=== PATIENT | male | born 1970 | race African-American/Black ===

== ENCOUNTER 2022-02-17 16:51 | Emergency (ER) | payer BC ==
--- OUTSIDE RECORDS SUMMARY | 2022-02-17 16:55 | XMS REPORT | Continuity of Care Document ---
:1970 Author Organization [facility] t Address [address] [place] [address] Care Team Providers Name Role Phone Asked, No Pcp Primary Care Physician Unavailable Sp MARI, Troy Finch Attending Clinician Payers Payer Name Policy Type Policy Number Effective Date Expiration Date S ource Problems Condition Condition Condition Status Onset Resolution Last Treating Co mments Source Name Details Category Date Date Treatment Clinician Date Umbilical Umbilical Disease Active 2017-06 [facility] hernia, hernia, [address] incarcerat 00:00: [facility] ed ed 00 l Allergies, Adverse Reactions, Alerts Allergy Allergy Status Severity Reaction(s) Onset Inactive Treating Comm ents Source Name Type Date Date Clinician Iodine Propensi Active Shortness Of 2017-06 Sweating, Method[facility] ty to Breath 2-[address] adverse 00:00: Hospita reaction 00 l s to drug Other Propensi Active 2017-06 Contrast Method i ty to 2-[address] adverse 00:00: Hospita reaction 00 l s Social History Social Habit Start Date Stop Date Quantity Comments Source History [facility] History [facility] Drinks Alcohol intake 2018-05-11 2018-05-11 Current [facility] 00:00:00 00:00:00 non-drinker of Hospital alcohol (finding) Tobacco use and 2018-05-07 2018-05-07 Smokeless tobacco [facility] exposure 00:00:00 00:00:00 non-user Hospital History SDOH 2018-05-07 2018-05-07 1 [facility] Frequency 00:00:00 00:00:00 Hospita l Sex Assigned At [birth year] [facility] 00:00:00 00:[facility]00 Hospital Smoking Status Start Date Stop Date Source Never smoked tobacco [facility] Medications Ordered Filled Start Stop Current Ordering Indication Dosage Frequency Signature Comments Components Source Medication Medication Date Date Medication? Clinician (SIG) Name Name dicyclomine 20mg Q.5D Take 1 Met hodi (BENTYL) 20 6-05 06-16 tablet (20 s t mg tablet 00:00: 04:59 mg total) Ho spita 00 :00 by mouth 2 l (two) times a day for 10 days. hydroCHLORO 2017-06 Yes 50mg QD Take 50 mg [facility] thiazide 2-[address] (HYDRODIURI 15:11: daily. Hosp stephanie L) 50 MG 42 l tablet metFORMIN 2017-06 Yes 1000mg Q.5D Take 1,000 [facility] (GLUCOPHAGE 2-[address] ) 1,000 mg 15:11: mouth 2 Hosp stephanie tablet 42 (two) l times a day with meals. aspirin 2017-06 Yes 81mg QD Take 81 mg Meth iker (ECOTRIN) 2-[address] 81 MG 15:11: daily. Hospita enteric 42 l coated tablet Vital Signs Vital Name Observation Time Observation Value Comments Source Systolic blood 2021-11-03 15:00:00 108 mm[Hg] [facility] pressure Diastolic blood 2021-11-03 15:00:00 59 mm[Hg] [facility] pressure Heart rate 2021-11-03 15:00:00 57 /min [facility] Body temperature 2021-11-03 15:00:00 36.17 Tiffanie [facility] Respiratory rate 2021-11-03 15:00:00 19 /min [facility] Oxygen saturation in 2021-11-03 15:00:00 95 /min [facility] Arterial blood by Pulse oximetry Body height 2021-11-03 13:10:00 182.9 cm [facility] Body weight 2021-11-03 13:10:00 140.615 kg [facility] BMI 2021-11-03 13:10:00 42.04 kg/m2 [facility] Procedures Procedure Date / Time Performing Clinician Source Performed ED REFERRAL TO [facility] 2021-11-03 15:21:34 Troy Snowden [facility] [employer] URINE CULTURE 2021-11-03 14:32[facility]00 [facility] AND 2021-11-03 14:32:00 Troy Snowden [facility] MICROSCOPY, WITH REFLEX TO CULTURE COMPREHENSIVE METABOLIC 2021-11-03 13:49:00 Troy Snowden [facility] PANEL LIPASE LEVEL 2021-11-03 13:49:00 [facility] ESTIMATED GFR 2021-11-03 13:49:00 [facility] ABDOMEN PELVIS WO 2021-11-03 13:39:[address] [facility] CONTRAST HC COMPLETE BLD COUNT 2021-11-03 13:22:00 Troy Snowden [facility] W/AUTO DIFF Plan of Care Planned Activity Planned Date Details Comments Source Future Scheduled 2022-02-17 HEPATITIS B VACCINES Met [facility] Test 16:55:00 (1 of 3 - 3-dose series) [code = HEPATITIS B VACCINES (1 of 3 - 3-dose series)] Future Scheduled 2022-02-17 COVID-19 VACCINE (#1) [facility] Test 16:55:00 [code = COVID-19 VACCINE (#1)] Future Scheduled 2022-02-17 Hepatitis C screening [facility] Test 16:55:00 (procedure) [code = [id number]] Future Scheduled 2022-02-17 COLONOSCOPY SCREENING [facility] Test 16:55:00 [code = COLONOSCOPY SCREENING] Future Scheduled 2022-02-17 SHINGLES VACCINES ([address] [facility] Test 16:55:00 of 2) [code = SHINGLES VACCINES (1 of 2)] Future Scheduled 2022-02-[address] [facility] Test 16:55:00 [code = INFLUENZA VACCINE] Encounters Start End Encounter Admission Attending Care Care Encounter Source Date/Time Date/Time Type Type Clinicians Facility Department ID 2021-11-03 2021-11-03 Emergency Sp, [id number] Lucy 08:12:00 10:31:00 Troy Finch [id number] [id number] Hospit [id number] 2021-11-03 2021-11-03 Emergency [facility] [place] [id number] [place] [address] 00:00:00 00:00:00 TROY [address] Results Test Description Test Time Test Comments Results Result Comments Source Urine culture 2021-11-03 15:37:00 Test Item Value Reference Range Interpretation Comme nts Urine culture (test code = [id number]) SEE COMMENT Bacteriuria screen negative. [facility]
[2022-02-17 18:09] LABS: Urine Blood Negative (Negative); Urine Glucose Negative (Negative); Urine Protein Negative (Negative); Urine Specific Gravity >=1.030 (1.005-1.030)
[2022-02-17 18:20] LABS: Hematocrit 39.6 % (39.6-49.0); Lymphocytes % 30.7 % (15.3-44.8); MCV 73.4 fL (80-100); RBC Red Blood Cell Count 5.39 M/uL (4.33-5.43)
[2022-02-17 18:34] LABS: Urine Mucus Slight /HPF (None Seen); Urine RBC <5 /HPF (None Seen)
[2022-02-17 18:40] LABS: Bilirubin Total 0.3 mg/dL (0.2-1.0); Protein, Total 7.6 g/dL (6.4-8.2)
--- NOTE | 2022-02-17 20:09 | RAD REPORT ---
EXAM DESCRIPTION: CT - Stone Protocol - 02/17/2022 7:48 pm CLINICAL HISTORY: Abdominal pain./left flank pain COMPARISON: None. TECHNIQUE: Computed axial tomography of the abdomen pelvis was obtained without oral or IV contrast. Lack of IV and oral contrast limits evaluation of solid organs, appendix, bowel, and vessels. Calle l reformatted images were obtained and reviewed. All CT scans are performed using dose optimization technique as appropriate and may include automated exposure control or mA/KV adjustment according to patient size. FINDINGS: A renal calculus is not seen. An ureteral calculus is not noted. A bladder calculus is not present. The liver, spleen, pancreas and adrenals appear grossly normal Mild to moderate stranding adjacent to descending colon. Diverticula are not seen. Small ill-defined fatty structure present. Umbilical hernia repair IMPRESSION: Negative for a genitourinary calculus Mild to moderate stranding adjacent to descending colon probably epiploic appendagitis
--- NOTE | 2022-02-17 20:48 | EDPHYS ---
Physician Documentation [facility] Name: Rodo Buenrostro Age: 52 yrs Sex: Male : 1970 Arrival Date: 02/17/2022 Time: 16:54 Bed 20 Private MD: ED Physician Yue Dukes HPI: 02/18 01:56 This 52 yrs old Black Male presents to ER via Ambulatory with complaints of Flank Pain. kb 01:56 The patient presents with abdominal pain in the left upper quadrant. Onset: The kb symptoms/episode began/occurred 3 day(s) ago. The symptoms radiate to left back. Associated signs and symptoms: none. The symptoms are described as constant. Modifying factors: The symptoms are alleviated by nothing, the symptoms are aggravated by nothing. Severity of pain: At its worst the pain was mild moderate in the emergency department the pain is unchanged. The patient has not experienced similar symptoms in the past. The patient has not recently seen a physician. Historical: - Allergies: 02/17 17:29 iodine; ph - PMHx: 17:29 Diabetes mellitus; Hypertensive disorder; Hypercholesterolemia; ph - PSHx: 17:29 hernia; ph - Immunization history:: Adult Immunizations unknown. - Social history:: Smoking status: Patient denies any tobacco usage or history of. ROS: 02/18 01:56 Constitutional: Negative for fever, chills, and weight loss. kb Abdomen/GI: Positive for abdominal pain, Negative for nausea, vomiting, and diarrhea. All other systems are negative. Exam: 01:56 Constitutional: This is a well developed, well nourished patient who is awake, alert, kb and in no acute distress. Head/Face: Normocephalic, atraumatic. ENT: Moist Mucous membranes Cardiovascular: Regular rate and rhythm with a normal S1 and S2. No gallops, murmurs, or rubs. No pulse deficits. Respiratory: Respirations even and unlabored. No increased work of breathing. Talking in full sentences Abdomen/GI: Soft, non-tender. No distention Skin: Warm, dry with normal turgor. Normal color. MS/ Extremity: Pulses equal, no cyanosis. Neurovascular intact. Full, normal range of motion. Neuro: Awake and alert, GCS 15, oriented to person, place, time, and situation. Moves all extremities. Normal gait. Psych: Awake, alert, with orientation to person, place and time. Behavior, mood, and affect are within normal limits. Vital Signs: 02/17 17:26 BP 133 / 66; Pulse 81; Resp 18; Temp 98.3; Pulse Ox 97% on R/A; Weight 140.61 kg; ph Height 6 ft. 0 in. (182.88 cm); 21:20 BP 140 / 80; Pulse 81; Resp 16; Pulse Ox 98% on R/A; ja4 17:26 Body Mass Index 42.04 (140.61 kg, 182.88 cm) ph MDM: 17:30 Patient medically screened. kb 02/18 01:55 Data reviewed: vital signs, nurses notes. Data interpreted: Pulse oximetry: on room air kb is 98 %. Interpretation: normal. Counseling: I had a detailed discussion with the patient and/or guardian regarding: the historical points, exam findings, and any diagnostic results supporting the discharge/admit diagnosis, lab results, radiology results, the need for outpatient follow up, a family practitioner, to return to the emergency department if symptoms worsen or persist or if there are any questions or concerns that arise at home. 02/17 17:30 Order name: CBC with Diff; Complete Time: 18:26 kb 02/17 17:30 Order name: CMP; Complete Time: 18:56 kb 02/17 17:30 Order name: Lipase; Complete Time: 18:56 kb 02/17 17:30 Order name: Urine Microscopic Only; Complete Time: 18:36 kb 02/17 18:09 Order name: Urine Dipstick-Ancillary; Complete Time: 18:13 EDMS 02/17 19:23 Order name: CT Stone Protocol; Complete Time: 20:14 kb 02/17 17:30 Order name: IV Saline Lock; Complete Time: 18:12 kb 02/17 17:30 Order name: Labs collected and sent; Complete Time: 18:12 kb 02/17 17:30 Order name: Urine Dipstick-Ancillary (obtain specimen); Complete Time: 18:12 kb Administered Medications: No medications were administered Disposition: 07:45 STAFF ATTESTATION STATEMENT: I was immediately available onsite in the emergency sd2 department for consultation in the care of this patient. I did not see or examine this patient. Yue Dukes MD. Disposition Summary: 02/17/22 20:48 Discharge Ordered Location: Home kb Condition: Stable kb Diagnosis - Epiploic appendagitis kb Followup: kb - With: Private Physician - When: 2 - 3 days - Reason: Recheck today's complaints, Continuance of care, Re-evaluation by your physician Followup: kb - With: Emergency Department - When: As needed - Reason: Worsening of condition Discharge Instructions: - Discharge Summary Sheet kb - Epiploic Appendagitis kb Forms: - Medication Reconciliation Form kb - Thank You Letter kb - Antibiotic Education kb - Prescription Opioid Use kb Prescriptions: - Augmentin 875-125 mg Oral Tablet - take 1 tablet by ORAL route every 12 hours for 10 days; 20 tablet; Refills: 0, kb Product Selection Permitted - Diclofenac Sodium 75 mg Oral Tablet Sustained Release - take 1 tablet by ORAL route 2 times per day; 30 tablet; Refills: 0, Product kb Selection Permitted Signatures: Dispatcher [employer] Reina Wei FNP-C FNP-Ckb Hall, Patricia, RN RN Yue Dukes MD MD sd2
--- NOTE | 2022-02-17 20:48 | ER ---
Nurse's Notes [facility] Name: Rodo Buenrostro Age: 52 yrs Sex: Male : 1970 Arrival Date: 02/17/2022 Time: 16:54 Bed 20 Private MD: Diagnosis: Epiploic appendagitis Presentation: 02/17 17:26 Chief complaint: Patient states: LUQ/rib pain since Thursday morning, denies N/V/D or ph fever, also denies urinary symptoms or cough. Coronavirus screen: Vaccine status:. Coronavirus screen: Vaccine status: Patient reports receiving the 2nd dose of the covid vaccine. Ebola Screen: No symptoms or risks identified at this time. Initial Sepsis Screen: Does the patient meet any 2 criteria? No. Patient's initial sepsis screen is negative. Does the patient have a suspected source of infection? No. Patient's initial sepsis screen is negative. Risk Assessment: Do you want to hurt yourself or someone else? Patient reports no desire to harm self or others. Onset of symptoms was February 17, 2022. 17:26 Method Of Arrival: Ambulatory 17:26 Acuity: ELA 3 ph Historical: - Allergies: 17:29 iodine; ph - PMHx: 17:29 Diabetes mellitus; Hypertensive disorder; Hypercholesterolemia; ph - PSHx: 17:29 hernia; ph - Immunization history:: Adult Immunizations unknown. - Social history:: Smoking status: Patient denies any tobacco usage or history of. Screenin:00 Abuse screen: Denies threats or abuse. Nutritional screening: No deficits noted. ja4 Tuberculosis screening: No symptoms or risk factors identified. Fall Risk None identified. Assessment: 20:00 General: Appears in no apparent distress. uncomfortable, obese, Behavior is calm, ja4 cooperative, appropriate for age. Pain: Complains of pain in left upper quadrant Pain currently is 6 out of 10 on a pain scale. Quality of pain is described as crampy, Pain began 2-3 days ago. Is intermittent. Neuro: No deficits noted. Cardiovascular: No deficits noted. GI: Reports normal bowel habits, tolerance of fluids, tolerance of food. Vital Signs: 17:26 BP 133 / 66; Pulse 81; Resp 18; Temp 98.3; Pulse Ox 97% on R/A; Weight 140.61 kg; ph Height 6 ft. 0 in. (182.88 cm); 21:20 BP 140 / 80; Pulse 81; Resp 16; Pulse Ox 98% on R/A; ja4 17:26 Body Mass Index 42.04 (140.61 kg, 182.88 cm) ph ED Course: 16:54 Patient arrived in ED. mr 16:57 Primo RiveraDI eugene is [facility]. kb 16:57 Yue Dukes MD is Attending Physician. kb 17:29 Triage completed. ph 17:30 Arm band placed on Patient placed. ph 17:59 Initial lab(s) drawn, by va, sent to lab. Inserted saline lock: 20 gauge in left 3 antecubital area, using aseptic technique. Blood collected. 18:05 Urine collected: clean catch specimen, clear. 3 19:50 CT Stone Protocol In Process Unspecified. EDMS 19:52 Sonny Cruz, RN is Primary Nurse. ja4 20:00 Patient has correct armband on for positive identification. Bed in low position. Call ja4 light in reach. 21:20 IV discontinued, intact, bleeding controlled, No redness/swelling at site. Pressure ja4 dressing applied. Administered Medications: No medications were administered Medication: 20:00 VIS not applicable for this client. ja4 Outcome: 20:48 Discharge ordered by . kb 21:20 Discharged to home ambulatory. ja4 21:20 Condition: stable 21:20 Discharge instructions given to patient, Instructed on discharge instructions, follow up and referral plans. medication usage, Demonstrated understanding of instructions, follow-up care, medications. 21:22 Patient left the ED. ja4 Signatures: Dispatcher [employer] EDAR Reina Rivera FNP-C FNP-Marcello Kenzie CruzErnestine, RN RN Janie Hamilton [facility] Sonny Cruz, RN RN carina
[2022-02-19 03:41] VITALS: BP 140/80; O2SAT 98
[2022-02-19 03:49] VITALS: TEMP 98.3
== END 2022-02-17 21:22 | disposition home or self-care (01) ==
LOC: ER 16:51
DX: K63.89 Other specified diseases of intestine (principal); Z91.048 Other nonmedicinal substance allergy status
CPT/HCPCS: 36415; 74176; 76377; 80053; 81003; 81015; 83690; 85025; 99283